=== PATIENT | female | born 2000 | race Caucasian/White ===

== ENCOUNTER 2025-09-22 23:18 | Emergency (ER) | payer SELFPAY ==
[~2025-09-22] VITALS: Ht 167.6 cm; Wt 63.6 kg
[2025-09-22 23:24] VITALS: BP 111/77; PULSE 91; RESP 18; TEMP 98.1; O2SAT 99
[2025-09-23 00:54] LABS: CALCIUM, TOTAL 8.9 mg/dL (8.8-10.5); CREATININE 0.79 mg/dL (0.60-1.30); GLOMERULAR FILTR. RATE CALC > 60 mL/min (>60); GLUCOSE,RANDOM 101 mg/dL (70-110); SODIUM SERUM 135 mmol/L (136-145); UREA NITROGEN, BLOOD 6 mg/dL (7-18)
[2025-09-29] MEDS ORDERED: GABA-1201 PO ×2 (12:55→15:29)
[2025-09-29] MEDS ORDERED: BUSP15 PO ×3 (12:55→15:29)
[2025-09-29] MEDS ORDERED: TRAZ150T80 PO ×2 (12:55→15:29)
[2025-09-29] MEDS ORDERED: OMEP-148 PO (15:29)
[2025-09-29] MEDS ORDERED: DIAZ2 PO (15:29)
[2025-09-29] MEDS ORDERED: NORE-8 PO (15:29)
[2025-09-29] MEDS ORDERED: HYDR-4808 PO (15:29)
== END 2025-09-23 01:25 | disposition left against medical advice (07) ==
LOC: EMS 23:18
DX: R10.9 Unspecified abdominal pain (principal); Z53.21 Procedure and treatment not carried out due to patient leaving prior to being seen by health care provider
CPT/HCPCS: 80048; 83690; 84703; 99281